=== PATIENT | female | born 1935 | race Caucasian/White ===

== ENCOUNTER → 2017-10-15 | Outpatient (CLI) | payer OTHER | LOC: M.RAD 13:44 | DX: Z12.31 Encounter for screening mammogram for malignant neoplasm of breast (principal) ==

== ENCOUNTER → 2018-12-24 | Outpatient (CLI) | payer OTHER | LOC: EDSTATUS 13:50 → M.RAD 13:50 | DX: Z12.31 Encounter for screening mammogram for malignant neoplasm of breast (principal) ==

== ENCOUNTER 2021-07-30 08:16 | Inpatient (IN) | payer OTHER ==
[~2021-07-30] VITALS: Ht 157.5 cm; Wt 37.2 kg
--- NOTE | ~2021-07-30 | EMS ---
[address] [address] EMS Patient Care Report Name: CHESTER VAZQUEZ Room: [address] IN [facility]#: [id number] Admission: 07/30/21 Attend Phys: Jose Sewell MD Discharge: Date of : 37 Report #: [id number] THIS REPORT FOR: //name// Report Transmitted: 07/30/2021 15:36 EMS Care Summary [facility] Incident [id number] @ 07/30/2021 07:22 Incident Location [address] [place] [address] Patient CHESTER VAZQUEZ Female, 86 Years 1935 Patient Address [address] [place] [address] Patient History Chronic Obstructive Pulmonary Disease (COPD), Patient Allergies No known allergies, Patient Medications Losartan, Levothyroxine, Chief Complaint Short of air Disposition Transported No Lights/[place] Dis[place] Reason Breathing Problem Transported To [facility] Narrative [facility] was dispatched for an 86 year old female who is short of air. Upon arrival to the scene, EMS made entry to the residence through the front door which was locked and had to be unlocked by the patient. EMS greeted the [address] [address] EMS Patient Care Report Name: CHESTER VAZQUEZ Room: [address] IN [facility]#: [id number] Admission: 07/30/21 Attend Phys: Jose Sewell MD Discharge: Date of : 37 Report #: [id number] patient who responds appropriately. Ems askes if the patient is short of air and she responds "yes." EMS directs the patient back to the living room to have a seat to catch her breath and to be checked out. Patient is alert and oriented times four and has a GCS of 15, Patient is tachepnic with shallow respirations, Patient has a wet, non productive cough. Lung sounds are assessed with wheezing noted in all lopez on inspiration and expiration, BGA is obtained at a value of 186, radial pulses are strong and regular bilaterally at the radials. O2 saturation is in the 80's EMS applies oxygen at 4 LPM in the home with marked improvement in saturation levels and work of breathing. The patient agrees she needs to be seen by a physician and request to be transported to [facility], with assistance from EMS the patient is able to stand pivot to the awaiting stretcher and is secured via seatbelts and taken to the ambulance and loaded, a non emergent transport to [place] Beg[facility]. While enroute to [place], vital signs are continuously monitored with marked improvement to O2 saturation levels, a 4 Lead ECG is applied. Patient advices EMS that she is diagnosed with COPD, and is a current smoker, and states that the event began last night before bed last night and when she woke up this morning she felt much worse. [place] is contacted via radio with no questions or orders received. Med 1 arrives at [place] without incident.. Upon arrival to [place] verbal report is given to Amira Pena R.N and transfer of care is made and the patient is left in the care of ER staff in room 11. [facility]. Nothing further at this time. *End of report* Stanley Kenanevan [id number] Initial Vitals @07:46P: 101,SpO2: 93, @07:51P: 102,SpO2: 95, @08:00P: 99,SpO2: 95, @07:45P: 96,SpO2: 94, @08:10P: 98,SpO2: 94, @07:46P: 97,R: 15,BP: 134/79,Pain: 6/10,GCS: 15,SpO2: 93,Revised Trauma: 12, @08:06P: 101,R: 15,BP: 138/88,Pain: 6/10,GCS: 15,SpO2: 95,Revised Trauma: 12, @07:57P: 108,R: 15,BP: 145/90,Pain: 6/10,GCS: 15,SpO2: 86,Revised Trauma: 12, @07:43P: 99,R: 18,BP: 132/76,Pain: 6/10,GCS: 15,SpO2: 96,Revised Trauma: 12, @07:30R: 20,BP: 130/90,Pain: 7/10,GCS: 15,Temp: 97.7F,Glucose: 186,SpO2: 81,Revised Trauma: 12, Impression Acute Respiratory Distress (Dyspnea) [place] [address] EMS Patient Care Report Name: CHESTER VAZQUEZ Room: [place] [address] ADM IN M.R.#: [id number] Admission: 07/30/21 Attend Phys: Jose Sewell MD Discharge: Date of : 37 Report #: [id number] @07:30 Oxygen FlowRate: 4 Device: Nasal Cannula (NC) Response: ImprovedSucceeded Timeline 07:20,Call Received 07:22,Dispatched 07:23,En Route 07:26,On Scene 07:27,At Patient 07:30,Oxygen FlowRate: 4 Device: Nasal Cannula (NC) Response: ImprovedSucceeded, 07:30,BP: 130/90 M,PULSE: ,RR: 20 R,SPO2: 81 Ox,ETCO2: ,B,PAIN: 7,GCS: 15, 07:43,BP: 132/76 M,PULSE: 99,RR: 18 R,SPO2: 96 Ox,ETCO2: ,BG: ,PAIN: 6,GCS: 15, 07:45,BP: / M,PULSE: 96,RR: R,SPO2: 94 Ox,ETCO2: ,BG: ,PAIN: ,GCS: , 07:46,BP: 134/79 M,PULSE: 97,RR: 15 R,SPO2: 93 Ox,ETCO2: ,BG: ,PAIN: 6,GCS: 15, 07:46,BP: / M,PULSE: 101,RR: R,SPO2: 93 Ox,ETCO2: ,BG: ,PAIN: ,GCS: , 07:47,Depart Scene 07:51,BP: / M,PULSE: 102,RR: R,SPO2: 95 Ox,ETCO2: ,BG: ,PAIN: ,GCS: , 07:57,BP: 145/90 M,PULSE: 108,RR: 15 R,SPO2: 86 Ox,ETCO2: ,BG: ,PAIN: 6,GCS: 15, 08:00,BP: / M,PULSE: 99,RR: R,SPO2: 95 Ox,ETCO2: ,BG: ,PAIN: ,GCS: , 08:06,BP: 138/88 M,PULSE: 101,RR: 15 R,SPO2: 95 Ox,ETCO2: ,BG: ,PAIN: 6,GCS: 15, 08:10,BP: / M,PULSE: 98,RR: R,SPO2: 94 Ox,ETCO2: ,BG: ,PAIN: ,GCS: , 08:12,At Destination 08:15,Transfer Patient 10:16,Call Closed 10:16,In District Disclaimer v1.1 Copyright 2020 [employer] This EMS Care Summary contains data elements from the applicable legal record (which may be displayed differently). It is designed to provide pertinent information for the following purposes: continuity of care, clinical quality, and state data reporting. The complete legal record is available to ED staff and administrators of the receiving hospital in [employer] Patient Tracker. All data is provided "as is."
[2021-07-30 08:17] VITALS: BP 169/89
[2021-07-30] MEDS ORDERED: COZAAR 25 MG TA25 M1 PO (08:22)
[2021-07-30] MEDS ORDERED: LEVO-T25 MCG PO (08:22)
[2021-07-30 08:48] LABS: HEMATOCRIT 47.2 % (37.0-47.0); HEMOGLOBIN 15.6 gm/dL (12.0-15.0); MCH 31.3 pg (26.0-34.0); MCV 94.9 fL (80.0-100.0); MPV 8.1 fl. (7.2-11.1); NUCLEATED RBCS 0 /100WBC; PLATELET COUNT* 255 thou/uL (150-400); RBC 4.97 mil/uL (4.20-5.00); RDW-CV 13.7 % (10.5-14.5); WBC 15.3 thou/uL (4.0-11.0)
[2021-07-30 08:58] LABS: CALCIUM 8.8 mg/dL (8.5-10.1); CREATININE 0.7 mg/dL (0.6-1.3); POTASSIUM 4.3 mmol/L (3.5-5.1)
[2021-07-30 09:09] LABS: ALBUMIN 3.6 g/dL (3.4-5.0); MAGNESIUM 2.3 mg/dL (1.8-2.4); TOTAL BILIRUBIN 0.7 mg/dL (<0.1-1.0); TOTAL PROTEIN 6.8 g/dL (6.4-8.2)
--- NOTE | 2021-07-30 10:06 | EKG ---
[place] [address] ELECTROCARDIOGRAM REPORT Name: CHESTER VAZQUEZ Room: [facility]#: [id number] Admission: 07/30/21 Attend Phys: Discharge: Date of : 37 Date of Service: 07/30/21818 Report #: [id number] THIS REPORT FOR: //name// [facility] ED Test Date: 2021-07-30 Test Time: 08:19:41 Pat Name: CHESTER VAZQUEZ Department: Room: Gender: F [employer]: : 1935 Requested By: Owen Lewis Order Number: [id number] MD: Carlos Christensen Measurements Intervals [place] Rate: 102 P: 52 OK: 122 QRS: 13 QRSD: 92 T: 93 QT: 331 QTc: 432 Interpretive Statements Sinus tachycardia Low voltage, extremity and precordial leads Nonspecific repol abnormality, diffuse leads Baseline wander in lead(s) V1,V3,V4,V5,V6 Compared to ECG 02/09/2016 11:50:03 Low QRS voltage now present Early repolarization now present Sinus rhythm no longer present Myocardial infarct finding no longer present Electronically Signed On 07-30-2021 10:05:55 CDT by Carlos Christensen [email or web address] <ELECTRONICALLY SIGNED> By: Ross Christensen MD, HENRY 07/30/21 1005 8 8 Ross Christensen MD, HENRY /EPI
[2021-07-30 10:20] LABS: ABSOLUTE LYMPHOCYTES 0.3 thou/uL (0.8-5.3); ABSOLUTE MONOCYTES 0.9 thou/uL (0.0-1.2); ABSOLUTE NEUTROPHILS 14.1 thou/uL (1.6-8.1); ANISOCYTOSIS 1+; PLATELET ESTIMATE ADEQUATE; POIKILOCYTOSIS 1+
[2021-07-30 11:40] VITALS: BP 111/67
[2021-07-30 14:05] VITALS: BP 131/68
[2021-07-30 14:22] LABS: BE -0.5 mmol/L (-2 to +3); PO2 78.1 mmHg (75.0-100.0)
[2021-07-30 14:36] LABS: PCO2 76.1 mmHg (35.0-45.0); pH 7.211 (7.340-7.450)
[2021-07-30 18:01] VITALS: BP 125/66
[2021-07-30 21:56] VITALS: BP 122/66
[2021-07-31 02:00] VITALS: BP 119/65
[2021-07-31 03:49] LABS: ABSOLUTE LYMPHOCYTES 0.4 thou/uL (0.8-5.3); ABSOLUTE MONOCYTES 0.3 thou/uL (0.0-1.2); ABSOLUTE NEUTROPHILS 8.3 thou/uL (1.6-8.1); HEMATOCRIT 42.8 % (37.0-47.0); HEMOGLOBIN 13.9 gm/dL (12.0-15.0); LYMPHOCYTES 4.1 %; MCH 31.1 pg (26.0-34.0); MCHC 32.5 g/dL (28.0-37.0); MCV 95.8 fL (80.0-100.0); NUCLEATED RBCS 0 /100WBC; PLATELET COUNT* 206 thou/uL (150-400); POLYS 92.9 %; RBC 4.46 mil/uL (4.20-5.00); RDW-CV 13.9 % (10.5-14.5); WBC 8.9 thou/uL (4.0-11.0)
[2021-07-31 04:04] LABS: CALCIUM 8.6 mg/dL (8.5-10.1); CREATININE 0.6 mg/dL (0.6-1.3); POTASSIUM 4.3 mmol/L (3.5-5.1)
[2021-07-31 06:02] VITALS: BP 116/61
[2021-07-31 10:07] VITALS: BP 152/62
[2021-07-31] MEDS ORDERED: HYDROCHLOROTH12.5 M1 PO (12:21)
[2021-07-31 13:50] VITALS: BP 121/62
--- NOTE | 2021-07-31 16:17 | 2DMMODE ---
[place] [address] 2 D/M-MODE ECHOCARDIOGRAM Name: CHESTER VAZQUEZ Room: [address] IN [facility]#: [id number] Admission: 07/30/21 Attend Phys: Jose Sewell, Discharge: Date of : 37 Date of Service: 07/31/21 1616 Report #: [id number] THIS REPORT FOR: cc: Javier Pearl,Stanley Collins MD [facility] ~ APPROVED REPORT Study performed: 07/31/2021 15:20:13 EXAM: Comprehensive 2D, Doppler, and color-flow Echocardiogram Patient Location: In-Patient Room #: er Status: routine BSA: 1.31 HR: 88 bpm BP: 152/62 mmHg Rhythm: NSR Other Information Study Quality: Good Indications Congestive Heart Failure COPD 2D Dimensions IVSd: 5.69 (7-11mm) LVOT Diam: 20.02 (18-24mm) LVDd: 38.84 mm PWd: 6.38 (7-11mm) Ascending Ao: 37.31 (22-36mm) LVDs: 20.23 (25-40mm) Aortic Root: 30.94 mm Volumes Left Atrial Volume (Systole) LA ESV Index: 22.20 mL/m2 Aortic Valve AoV Peak Dev.: 1.35 m/s AO Peak Gr.: 7.32 mmHg LVOT Max P.86 mmHg AO Mean Gr.: 3.28 mmHg LVOT Mean P.42 mmHg LVOT Max V: 1.21 m/s AO V2 VTI: 22.44 cm LVOT Mean V: 0.70 m/s MIGUE (VTI): 2.68 cm2 LVOT V1 VTI: 19.12 [place] [address] 2 D/M-MODE ECHOCARDIOGRAM Name: CHESTER VAZQUEZ Room: [address] IN ..#: [id number] Admission: 07/30/21 Attend Phys: Jose Sewell, Discharge: Date of : 37 Date of Service: 07/31/21 1616 Report #: [id number] Mitral Valve E/A Ratio: 1.23 MV Decel. Time: 211.34 ms MV E Max Dev.: 0.89 m/s MV PHT: 61.29 ms MVA (PHT): 3.59 cm2 TDI E/Lateral E': 9.89 E/Medial E': 8.90 Medial E' Dev.: 0.10 m/s Lateral E' Dev.: 0.09 m/s Pulmonary Valve PV Peak Dev.: 1.04 m/s PV Peak Gr.: 4.35 mmHg Tricuspid Valve RAP Estimate: 15.00 mmHg TR Peak Gr.: 43.92 mmHg RVSP: 58.00 mmHg PA Pressure: 58.00 mmHg Left Ventricle The left ventricle is normal size. There is normal LV segmental wall motion. There is normal left ventricular wall thickness. Left ventricular systolic function is normal. The left ventricular ejection fraction is within the normal range. LVEF is 65-70%. The left ventricular diastolic function is normal. Right Ventricle Right ventricle is dilated. The right ventricular systolic function is normal. Atria The left atrium size is normal. Right atrium is dilated. Aortic Valve Mild aortic valve sclerosis. No aortic regurgitation is present. There is no aortic valvular stenosis. Mitral Valve The mitral valve is normal in structure. Trace mitral regurgitation. No evidence of mitral valve stenosis. Tricuspid Valve The tricuspid valve is normal in structure. Moderate tricuspid regurgitation. estimated pa pressure 50 [place] [address] 2 D/M-MODE ECHOCARDIOGRAM Name: CHESTER VAZQUEZ Derick Room: [address] [place] [facility]#: [id number] Admission: 07/30/21 Attend Phys: Jose Sewell, Discharge: Date of : 37 Date of Service: 07/31/21 1616 Report #: [id number] Pulmonic Valve The pulmonary valve is normal in structure. There is no pulmonic valvular regurgitation. Great Vessels The aortic root is normal in size. IVC is dilated and collapses <50% with inspiration. Pericardium There is no pericardial effusion. <Conclusion> LVEF is 65-70%. Moderate tricuspid regurgitation. estimated pa pressure 50 mm hg Right ventricle is dilated. <ELECTRONICALLY SIGNED> By: Stanley Barajas MD, FACC 07/31/21 1616 161 [id number] Stanley Barajas MD, FACC /INF
[2021-07-31 17:52] VITALS: BP 132/69
[2021-07-31 20:00] VITALS: BP 129/70
[2021-08-01] VITALS (8 sets, daily range): BP systolic 99–134; BP diastolic 58–74
[2021-08-01 04:16] LABS: CALCIUM 8.7 mg/dL (8.5-10.1); CREATININE 0.6 mg/dL (0.6-1.3); POTASSIUM 4.4 mmol/L (3.5-5.1)
[2021-08-01 04:37] LABS: HEMATOCRIT 44.9 % (37.0-47.0); HEMOGLOBIN 14.4 gm/dL (12.0-15.0); MCH 30.9 pg (26.0-34.0); MCHC 32.2 g/dL (28.0-37.0); MCV 96.2 fL (80.0-100.0); MPV 8.2 fl. (7.2-11.1); RBC 4.67 mil/uL (4.20-5.00); RDW-CV 13.5 % (10.5-14.5); WBC 13.9 thou/uL (4.0-11.0)
[2021-08-02] VITALS (7 sets, daily range): BP systolic 130–154; BP diastolic 68–83
[2021-08-02 04:42] LABS: HEMATOCRIT 42.2 % (37.0-47.0); HEMOGLOBIN 13.8 gm/dL (12.0-15.0); MCH 31.5 pg (26.0-34.0); MCHC 32.7 g/dL (28.0-37.0); MCV 96.2 fL (80.0-100.0); MPV 7.8 fl. (7.2-11.1); RBC 4.39 mil/uL (4.20-5.00); RDW-CV 13.6 % (10.5-14.5); WBC 11.9 thou/uL (4.0-11.0)
[2021-08-02 05:08] LABS: CALCIUM 8.6 mg/dL (8.5-10.1); CREATININE 0.6 mg/dL (0.6-1.3); POTASSIUM 4.3 mmol/L (3.5-5.1)
[2021-08-03 04:00] VITALS: BP 132/69
[2021-08-03 04:38] LABS: HEMOGLOBIN 13.7 gm/dL (12.0-15.0); MCHC 33.3 g/dL (28.0-37.0); MCV 96.1 fL (80.0-100.0); MPV 7.6 fl. (7.2-11.1); RBC 4.27 mil/uL (4.20-5.00); RDW-CV 13.7 % (10.5-14.5); WBC 8.7 thou/uL (4.0-11.0)
[2021-08-03 05:03] LABS: CALCIUM 8.3 mg/dL (8.5-10.1); CREATININE 0.5 mg/dL (0.6-1.3); POTASSIUM 3.9 mmol/L (3.5-5.1)
[2021-08-03 08:00] VITALS: BP 140/76
[2021-08-03 12:00] VITALS: BP 120/73
[2021-08-03] MEDS ORDERED: PREDNISONE 20 M20 MG PO (12:49)
[2021-08-03] MEDS ORDERED: DOXYCYCLINE 10100 MG PO (12:49)
[2021-08-03 13:45] VITALS: BP 140/76
== END 2021-08-03 15:20 | disposition home health service (06) | DRG 291 ==
LOC: M.ERS 08:16 → M.TBA-ER 09:49 → M.2W 08-01 16:31
PROVIDERS: Emergency Medicine Emergency Medical Services; Family Medicine; ADMIT Internal Medicine; ATTEND Internal Medicine
PROC: 5A0935A Assistance with Respiratory Ventilation, Less than 24 Consecutive Hours, High Flow/Velocity Cannula (ICD-10-PCS; principal; 2021-08-01)
PROC: 5A0935A Assistance with Respiratory Ventilation, Less than 24 Consecutive Hours, High Flow/Velocity Cannula (ICD-10-PCS; 2021-08-02)
PROC: 5A0935A Assistance with Respiratory Ventilation, Less than 24 Consecutive Hours, High Flow/Velocity Cannula (ICD-10-PCS; 2021-08-03)
DX: I11.0 Hypertensive heart disease with heart failure (principal); I50.31 Acute diastolic (congestive) heart failure; J96.01 Acute respiratory failure with hypoxia; E43 Unspecified severe protein-calorie malnutrition; Z68.1 Body mass index [BMI] 19.9 or less, adult; R64 Cachexia; J43.9 Emphysema, unspecified; Z20.822 Contact with and (suspected) exposure to COVID-19; E03.9 Hypothyroidism, unspecified; Z71.6 Tobacco abuse counseling; F17.210 Nicotine dependence, cigarettes, uncomplicated